=== PATIENT | male | born 1930 | race Caucasian/White ===

== ENCOUNTER 2016-10-21 10:03 | Emergency (ER) | payer OTHER, MEDICARE ==
[~2016-10-21] VITALS: Ht 177.8 cm; Wt 111.0 kg
[~2016-10-21 10:03] MED LIST: ACETAMINOPHEN1 EAC4 PO; ARTANE2 MG PO; ASPIR 8181 M1 PO; ASPIR-LOW81 MG PO; AUGMENTIN875 MG PO; Allergy PO; Artane PO; BENADRYL ALLERG25 MG PO; BENZONATATE100 MG PO; BUMETANIDE1 MG PO; BUMETANIDE2 MG PO; BUMEX2 MG PO; CLARITIN10 M3 PO; CLEOCIN300 MG PO; CRESTOR10 MG PO; DIGOXIN125 MCG PO; DOXYCYCLINE HY100 MG PO; ELIQUIS5 MG PO; FLOMAX0.4 MG; FUROSEMIDE40 MG PO; GABAPENTIN100 MG PO; GABAPENTIN300 MG PO; HYDROCODONE-AP1 EAC8 PO; K-DUR10 MEQ PO; K-DUR20 MEQ PO; KLOR-CON 1010 ME1 PO; KLOR-CON M2020 MEQ PO; LANTUS 10100 UNITS/ SC; LANTUS 3 M100 UNITS1 SC; LANTUS100 UNIT/1 SQ; LASIX40 MG PO; LEVOFLOXACIN500 MG PO; LISINOPRIL10 MG PO; LISINOPRIL40 MG PO; LOPRESSOR50 MG PO; LOSARTAN POTASS25 MG PO; Lopressor PO; MELOXICAM15 MG PO; METFORMIN HCL850 MG PO; METOPROLOL; METOPROLOL TART50 MG PO; MINOCYCLINE HCL50 MG PO; MIRALAX17 GM PO; MYSOLINE250 MG PO; NASA MIST SALIN75 ML NS; NORVASC2.5 MG PO; PERCOCET 5/31 TABLET PO; POTASSIUM CHLO20 ME1 PO; POTASSIUM-9999 MG PO; PRAMIPEXOLE DI0.5 MG PO; PRAVACHOL80 MG PO; PRAVASTATIN SOD20 MG PO; PRAVASTATIN SOD80 MG PO; PRIMIDONE250 MG PO; PROSCAR5 MG PO; REQUIP1 MG PO; RESTASIS 01 DROP/0.4 BOTH EYES; ST. JOSEPH ASPI81 MG PO; SULFASALAZINE500 MG PO; SYSTANE BALANCE10 ML BOTH EYES; TOPROL XL25 MG PO; TRIHEXYPHENIDYL2 MG PO; TYLENOL PM PO; TYLENOL WITH C1 EACH PO; XARELTO20 MG PO; ZESTRIL,PRINIVI20 MG PO; Zestril,Prinivil PO
[2016-10-21 10:35] LABS: POINT-OF-CARE METER ID UU13113778
[2016-10-21 10:49] LABS: EOSINOPHIL (%) 3.6 % (0-5); EOSINOPHIL COUNT 0.2 K/uL (0-0.3); HEMATOCRIT 40.7 % (38.0-50.0); IMMATURE GRANULOCYTE (%) 0.8 % (0.0-0.7); IMMATURE GRANULOCYTE COUNT 0.1 K/uL; INSTRUMENT ABS NEUTROPHIL CT 4.1 K/uL; LYMPHOCYTE COUNT 1.1 K/uL (1.0-2.8); MCH 31.3 PG (29.0-34.0); MCHC 33.2 G/DL (30.0-36.0); MCV 94.2 FL (86-99); MEAN PLAT.VOLUME 9.9 uM^3 (9.0-12.4); MONOCYTE (%) 9.9 % (3-12); MONOCYTE COUNT 0.6 K/uL (0-0.8); NEUTROPHIL (%) 66.6 % (45-76); NEUTROPHIL COUNT 4.1 K/uL (1.8-6.4); PLATELET COUNT 154 K/uL (156-360); RBC DIS.WIDTH-CV 13.2 % (11.8-14.6); RBC DIS.WIDTH-SD 45.2 % (39-53); RED BLOOD COUNT 4.32 M/uL (4.00-5.50); WHITE BLOOD COUNT 6.1 K/uL (4.1-10.2)
[2016-10-21 10:50] LABS: CARBON DIOXIDE (BICARBONATE) 32.2 MEQ/L (20-31)
[2016-10-21 11:01] LABS: CHLORIDE 102 mEq/L (99-109); POTASSIUM 4.6 mEq/L (3.7-5.4); SODIUM 137 mEq/L (136-147)
[2016-10-21 11:03] LABS: GLUCOSE 359 mg/dL (70-99)
[2016-10-21 11:04] LABS: ANION GAP 8 MEQ/L (2-14)
[2016-10-21 11:05] LABS: TOTAL BILIRUBIN 0.4 mg/dL (0.0-1.0)
[2016-10-21 11:07] LABS: ALKALINE PHOSPHATASE 78 IU/L (3-129); GFR ESTIMATE (CALCULATED) 51 mL/min/
[2016-10-21 11:08] LABS: UREA NITROGEN (BUN) 31 mg/dL (9-23)
[2016-10-21 11:09] LABS: DIRECT BILIRUBIN 0.2 mg/dL (0.0-0.3)
[2016-10-21 11:10] LABS: LIPASE 42 U/L (1.0-51.0); TROP-I INTERPRETATION NEGATIVE; TROPONIN-I 0.04 ng/mL (0.0-0.30)
[2016-10-21 11:54] LABS: ADD MIUA? NO; BILIRUBIN NEGATIVE; BLOOD NEGATIVE; COLOR YELLOW ((YELLOW)); GLUCOSE (STRIP) >=500; KETONES NEGATIVE; LEUKOCYTES NEGATIVE; NITRITE NEGATIVE; PROTEIN (STRIP) 30; SPECIFIC GRAVITY 1.017 (1.000-1.030); UCUL ADDED? NO; UROBILINOGEN 0.2 MG/DL (0.2-1.0)
[2016-10-21 12:03] LABS: ADD MEDTOX COMMENT Y; AMPHETAMINE NEGATIVE (500 ng/mL); BARBITURATES PRESUMPTIVE POSITIVE (200 ng/mL); BENZODIAZEPINES NEGATIVE (150 ng/mL); COCAINE NEGATIVE (150 ng/mL); INTERNAL CONTROLS VALID? YES; METHADONE NEGATIVE (200 ng/mL); METHAMPHETAMINE NEGATIVE (500 ng/mL); OPIATES (MORPHINE) NEGATIVE (100 ng/mL); OXYCODONE NEGATIVE (100 ng/mL); PHENCYCLIDINE NEGATIVE (25 ng/mL); PROPOXYPHENE NEGATIVE (300 ng/mL); THC CANNABINOIDS NEGATIVE (50 ng/mL); TRICYCLIC ANTIDEPRESSANTS NEGATIVE (300 ng/mL)
[2016-10-21 13:09] LABS: POINT-OF-CARE METER ID UU13113702
[2016-10-21 14:45] VITALS: BP 153/79
== END 2016-10-21 14:47 | disposition home or self-care (01) ==
LOC: EME 10:03
PROVIDERS: Emergency Medicine
DX: E11.65 Type 2 diabetes mellitus with hyperglycemia (principal); J45.909 Unspecified asthma, uncomplicated; G89.29 Other chronic pain; I11.0 Hypertensive heart disease with heart failure; I50.9 Heart failure, unspecified; I25.2 Old myocardial infarction; E11.40 Type 2 diabetes mellitus with diabetic neuropathy, unspecified; Z87.891 Personal history of nicotine dependence; R06.02 Shortness of breath
CPT/HCPCS: 71020; 80048; 80076; 81003; 82803; 82948; 83690; 83880; 84484; 84999; 85025; 93005; 99281; 99285; J7030

== ENCOUNTER 2017-04-01 04:25 | Inpatient (IN) | payer OTHER, MEDICARE ==
[~2017-04-01] VITALS: Ht 172.7 cm; Wt 109.9 kg
[2017-04-01 04:57] LABS: HEMATOCRIT 42.5 % (38.0-50.0); MCH 30.6 PG (29.0-34.0); MCHC 32.7 G/DL (30.0-36.0); MCV 93.6 FL (86-99); MEAN PLAT.VOLUME 10.7 uM^3 (9.0-12.4); PLATELET COUNT 136 K/uL (156-360); RBC DIS.WIDTH-CV 13.5 % (11.8-14.6); RBC DIS.WIDTH-SD 46.4 % (39-53); RED BLOOD COUNT 4.54 M/uL (4.00-5.50); WHITE BLOOD COUNT 8.2 K/uL (4.1-10.2)
[2017-04-01 05:07] LABS: CHLORIDE 107 mEq/L (99-109); POTASSIUM 4.5 mEq/L (3.7-5.4); SODIUM 139 mEq/L (136-147)
[2017-04-01 05:08] LABS: GLUCOSE 189 mg/dL (70-99)
[2017-04-01 05:10] LABS: ANION GAP 9 MEQ/L (2-14)
[2017-04-01 05:12] LABS: GFR ESTIMATE (CALCULATED) 51 mL/min/
[2017-04-01 05:13] LABS: UREA NITROGEN (BUN) 37 mg/dL (9-23)
[2017-04-01 05:17] LABS: INTER. NORMALIZED RATIO 1.2; PROTHROMBIN TIME 12.7 SEC (10.2-12.9)
[2017-04-01 05:19] LABS: TROP-I INTERPRETATION NEGATIVE; TROPONIN-I 0.05 ng/mL (0.0-0.30)
[2017-04-01 05:20] LABS: PTT 33.6 SEC (25-37)
[2017-04-01 06:28] LABS: DIGOXIN 0.4 ng/mL (0.8-2.0)
[2017-04-01] MEDS ORDERED: NEURONTIN300 MG PO (07:36)
[2017-04-01] MEDS ORDERED: RESTASIS MULTI5.5 ML BOTH EYES (07:37)
[2017-04-01] MEDS ORDERED: JANUVIA25 MG PO (07:38)
[2017-04-01] MEDS ORDERED: HUMALOG KW200 UNIT/1 SC ×2 (07:38)
[2017-04-01 08:07] LABS: POINT-OF-CARE METER ID UU13113702
[2017-04-01 10:53] VITALS: BP 144/69
[2017-04-01 11:58] LABS: POINT-OF-CARE METER ID UU14117124
[2017-04-01 16:12] VITALS: BP 137/65
[2017-04-01 17:39] LABS: POINT-OF-CARE METER ID UU14117124
[2017-04-01 20:02] VITALS: BP 125/65
[2017-04-01 23:49] VITALS: BP 134/72
[2017-04-02 04:26] VITALS: BP 116/65
[2017-04-02 06:24] LABS: POINT-OF-CARE METER ID UU14117124
[2017-04-02 06:58] LABS: ANION GAP 6 MEQ/L (2-14); CHLORIDE 103 MEQ/L (99-109); GFR ESTIMATE (CALCULATED) 56 mL/min/; GLUCOSE 132 mg/dL (70-99); POTASSIUM 4.8 MEQ/L (3.7-5.4); SAMPLE HEMOLYSIS CHECK 0; SAMPLE ICTERIC CHECK 0; SAMPLE LIPEMIA CHECK 0; SODIUM 138 MEQ/L (136-147); UREA NITROGEN (BUN) 34 mg/dL (9-23)
[2017-04-02 08:00] VITALS: BP 148/70
[2017-04-02 11:53] LABS: POINT-OF-CARE METER ID UU14208753
[2017-04-02 11:55] VITALS: BP 122/68
[2017-04-02 16:06] VITALS: BP 133/60
[2017-04-02 16:28] LABS: POINT-OF-CARE METER ID UU14208753
[2017-04-02 20:26] VITALS: BP 130/64
[2017-04-02 22:56] LABS: POINT-OF-CARE METER ID UU14208753
[2017-04-02 23:52] VITALS: BP 114/61
[2017-04-03 04:00] VITALS: BP 121/60
[2017-04-03 06:56] LABS: POINT-OF-CARE METER ID UU14117124
[2017-04-03 07:15] LABS: ANION GAP 6 MEQ/L (2-14); CHLORIDE 101 MEQ/L (99-109); GFR ESTIMATE (CALCULATED) 56 mL/min/; GLUCOSE 117 mg/dL (70-99); POTASSIUM 4.7 MEQ/L (3.7-5.4); SAMPLE HEMOLYSIS CHECK 0; SAMPLE ICTERIC CHECK 0; SAMPLE LIPEMIA CHECK 0; SODIUM 139 MEQ/L (136-147); UREA NITROGEN (BUN) 37 mg/dL (9-23)
[2017-04-03 08:09] VITALS: BP 132/66
[2017-04-03 11:23] LABS: POINT-OF-CARE METER ID UU14117124
[2017-04-03 11:51] VITALS: BP 136/63
[2017-04-03 16:08] VITALS: BP 136/63
[2017-04-03 16:51] LABS: POINT-OF-CARE METER ID UU14117124
[2017-04-03 20:26] VITALS: BP 131/63
[2017-04-03 21:32] LABS: POINT-OF-CARE METER ID UU14117124
[2017-04-04 00:15] VITALS: BP 127/61
[2017-04-04 04:37] VITALS: BP 119/58
[2017-04-04 08:23] VITALS: BP 132/63
[2017-04-04 11:36] LABS: POINT-OF-CARE METER ID UU14188577
[2017-04-04 11:59] VITALS: BP 116/66
== END 2017-04-04 15:40 | DRG 291 ==
LOC: EME 04:25 → 3EAST 06:05 → EDOF 06:05 → ENRESERV 06:25 → 3EAST 08:39
PROVIDERS: Internal Medicine
DX: I13.0 Hypertensive heart and chronic kidney disease with heart failure and stage 1 through stage 4 chronic kidney disease, or unspecified chronic kidney disease (principal); I50.23 Acute on chronic systolic (congestive) heart failure; I48.1 Persistent atrial fibrillation; J44.1 Chronic obstructive pulmonary disease with (acute) exacerbation; I48.2 Chronic atrial fibrillation; R09.02 Hypoxemia; N18.3 Chronic kidney disease, stage 3 (moderate); I42.0 Dilated cardiomyopathy; I35.1 Nonrheumatic aortic (valve) insufficiency; I34.0 Nonrheumatic mitral (valve) insufficiency; I87.2 Venous insufficiency (chronic) (peripheral); E78.5 Hyperlipidemia, unspecified; E11.40 Type 2 diabetes mellitus with diabetic neuropathy, unspecified; E11.22 Type 2 diabetes mellitus with diabetic chronic kidney disease; I44.7 Left bundle-branch block, unspecified; E66.9 Obesity, unspecified; Z68.36 Body mass index [BMI] 36.0-36.9, adult; Z95.0 Presence of cardiac pacemaker; Z87.891 Personal history of nicotine dependence; Z87.442 Personal history of urinary calculi; Z79.4 Long term (current) use of insulin; Z79.01 Long term (current) use of anticoagulants; Z91.048 Other nonmedicinal substance allergy status
CPT/HCPCS: 71020; 80048; 80162; 82948; 83880; 84484; 85027; 85610; 85730; 93005; 93306; 94640; 94640 76; 94760; 94799; 99202; 99281; 99285; J1644; J1815; J1940; J2405

== ENCOUNTER 2017-06-21 13:47 | Emergency (ER) | payer OTHER, MEDICARE ==
[~2017-06-21] VITALS: Ht 172.7 cm; Wt 107.8 kg
[~2017-06-21 13:47] MED LIST changes: +HUMALOG KW200 UNIT/1 SC; +JANUVIA25 MG PO; +NEURONTIN300 MG PO; +RESTASIS MULTI5.5 ML BOTH EYES
[2017-06-21 15:29] LABS: APPEARANCE CLEAR ((CLEAR)); BILIRUBIN NEGATIVE; BLOOD NEGATIVE; COLOR YELLOW ((YELLOW)); GLUCOSE (STRIP) NEGATIVE; KETONES NEGATIVE; LEUKOCYTES MODERATE; NITRITE NEGATIVE; PROTEIN (STRIP) 30; SPECIFIC GRAVITY 1.018 (1.000-1.030)
[2017-06-21 15:36] LABS: BACTERIA NONE SEEN /HPF; EPITHELIAL CELLS RARE /HPF; MUCUS NONE SEEN /LPF; RED BLOOD CELLS 0-5 /HPF (0-5); UCUL ADDED? NO; WHITE BLOOD CELLS 0-5 /HPF (0-5)
[2017-06-21 15:37] LABS: HEMATOCRIT 43.8 % (38.0-50.0); HEMOGLOBIN 14.4 G/DL (12.5-16.6); MCH 30.9 PG (29.0-34.0); MCHC 32.9 G/DL (30.0-36.0); PLATELET COUNT 131 K/uL (156-360); RBC DIS.WIDTH-CV 13.8 % (11.8-14.6); RBC DIS.WIDTH-SD 46.7 % (39-53); RED BLOOD COUNT 4.66 M/uL (4.00-5.50); WHITE BLOOD COUNT 8.1 K/uL (4.1-10.2)
[2017-06-21 15:46] LABS: CHLORIDE 104 mEq/L (99-109); MAGNESIUM 2.5 mg/dL (1.3-2.7); POTASSIUM 4.7 mEq/L (3.7-5.4); SODIUM 138 mEq/L (136-147)
[2017-06-21 15:48] LABS: GLUCOSE 104 mg/dL (70-99)
[2017-06-21 15:50] LABS: INTER. NORMALIZED RATIO 1.2
[2017-06-21 15:51] LABS: CREATININE 1.4 mg/dL (0.6-1.3); GFR ESTIMATE (CALCULATED) 51 mL/min/ (58.99-99999)
[2017-06-21 15:52] LABS: UREA NITROGEN (BUN) 41 mg/dL (9-23)
[2017-06-21 15:53] LABS: PTT 36.2 SEC (25-37)
[2017-06-21 16:00] LABS: TROP-I INTERPRETATION NEGATIVE; TROPONIN-I 0.07 ng/mL (0.0-0.30)
[2017-06-21 16:01] LABS: DIGOXIN 0.6 ng/mL (0.8-2.0)
[2017-06-21] MEDS ORDERED: COLACE100 MG PO (18:01)
[2017-06-21 18:43] VITALS: BP 192/90
[2017-06-22] MEDS ORDERED: SENOKOT S,PE1 TABLET PO (21:14)
== END 2017-06-21 18:56 | disposition home or self-care (01) ==
LOC: EME 13:47
PROVIDERS: Emergency Medicine
DX: K59.00 Constipation, unspecified (principal); R10.32 Left lower quadrant pain; I11.0 Hypertensive heart disease with heart failure; I50.9 Heart failure, unspecified; E11.40 Type 2 diabetes mellitus with diabetic neuropathy, unspecified; J45.909 Unspecified asthma, uncomplicated; I25.2 Old myocardial infarction; Z79.4 Long term (current) use of insulin; Z87.891 Personal history of nicotine dependence; Z87.442 Personal history of urinary calculi; Z85.9 Personal history of malignant neoplasm, unspecified; Z88.8 Allergy status to other drugs, medicaments and biological substances
CPT/HCPCS: 74177; 80048; 80162; 81003; 82948; 83605; 83735; 84484; 85027; 85610; 85730; 93005; 99281; 99285; J7040

== ENCOUNTER 2017-06-22 18:13 | Emergency (ER) | payer OTHER, MEDICARE ==
[~2017-06-22] VITALS: Ht 172.7 cm; Wt 108.5 kg
[~2017-06-22 18:13] MED LIST changes: +COLACE100 MG PO
[2017-06-22 19:08] LABS: APPEARANCE CLEAR ((CLEAR)); BILIRUBIN NEGATIVE; BLOOD NEGATIVE; COLOR YELLOW ((YELLOW)); GLUCOSE (STRIP) NEGATIVE; KETONES NEGATIVE; LEUKOCYTES TRACE; NITRITE NEGATIVE; PROTEIN (STRIP) 100; SPECIFIC GRAVITY 1.027 (1.000-1.030)
[2017-06-22 19:12] LABS: BACTERIA NONE SEEN /HPF; EPITHELIAL CELLS RARE /HPF; MUCUS NONE SEEN /LPF; RED BLOOD CELLS 0-5 /HPF (0-5); UCUL ADDED? NO; WHITE BLOOD CELLS 0-5 /HPF (0-5)
[2017-06-22 19:13] LABS: HEMATOCRIT 44.2 % (38.0-50.0); HEMOGLOBIN 14.6 G/DL (12.5-16.6); MCH 31.1 PG (29.0-34.0); PLATELET COUNT 138 K/uL (156-360); RBC DIS.WIDTH-CV 13.9 % (11.8-14.6); WHITE BLOOD COUNT 8.3 K/uL (4.1-10.2)
[2017-06-22 19:21] LABS: ALBUMIN 3.9 g/dL (3.2-4.8)
[2017-06-22 19:22] LABS: CHLORIDE 106 mEq/L (99-109); POTASSIUM 5.1 mEq/L (3.7-5.4); SODIUM 142 mEq/L (136-147)
[2017-06-22 19:24] LABS: GLUCOSE 128 mg/dL (70-99); TOTAL PROTEIN 7.2 g/dL (6.4-8.3)
[2017-06-22 19:26] LABS: TOTAL BILIRUBIN 0.4 mg/dL (0.0-1.0)
[2017-06-22 19:27] LABS: ALKALINE PHOSPHATASE 96 IU/L (3-129)
[2017-06-22 19:28] LABS: CREATININE 1.5 mg/dL (0.6-1.3); GFR ESTIMATE (CALCULATED) 47 mL/min/ (58.99-99999)
[2017-06-22 19:29] LABS: AST (GOT) 22 IU/L (2-34); UREA NITROGEN (BUN) 45 mg/dL (9-23)
[2017-06-22 19:31] LABS: ALT (GPT) 20 IU/L (3-49)
[2017-06-22] MEDS ORDERED: SENOKOT S,PE1 TABLET PO (21:14)
[2017-06-22 21:43] VITALS: BP 156/89
== END 2017-06-22 21:43 | disposition home or self-care (01) ==
LOC: EME 18:13
PROVIDERS: Emergency Medicine
DX: R10.32 Left lower quadrant pain (principal); K59.00 Constipation, unspecified; R21 Rash and other nonspecific skin eruption; G25.81 Restless legs syndrome; B35.8 Other dermatophytoses; I10 Essential (primary) hypertension; E11.9 Type 2 diabetes mellitus without complications; Z79.4 Long term (current) use of insulin; Z87.442 Personal history of urinary calculi; Z79.01 Long term (current) use of anticoagulants; Z87.891 Personal history of nicotine dependence
CPT/HCPCS: 80053; 81003; 83605; 85027; 99281; 99285; J2765; J7040

== ENCOUNTER 2017-09-22 03:17 | Inpatient (IN) | payer OTHER, MEDICARE ==
[~2017-09-22] VITALS: Ht 172.7 cm; Wt 103.5 kg
[~2017-09-22 03:17] MED LIST changes: +SENOKOT S,PE1 TABLET PO
[2017-09-22 03:40] LABS: HEMATOCRIT 43.3 % (38.0-50.0); HEMOGLOBIN 14.3 G/DL (12.5-16.6); MCH 31.4 PG (29.0-34.0); PLATELET COUNT 152 K/uL (156-360); RBC DIS.WIDTH-CV 13.4 % (11.8-14.6); RBC DIS.WIDTH-SD 46.9 % (39-53); RED BLOOD COUNT 4.56 M/uL (4.00-5.50)
[2017-09-22 03:59] LABS: CHLORIDE 103 mEq/L (99-109); SODIUM 140 mEq/L (136-147)
[2017-09-22 04:01] LABS: GLUCOSE 274 mg/dL (70-99)
[2017-09-22 04:05] LABS: CREATININE 1.4 mg/dL (0.6-1.3); GFR ESTIMATE (CALCULATED) 51 mL/min/ (58.99-99999); UREA NITROGEN (BUN) 38 mg/dL (9-23)
[2017-09-22 04:36] LABS: MAGNESIUM 2.2 mg/dL (1.3-2.7)
[2017-09-22 04:47] LABS: TROP-I INTERPRETATION NEGATIVE; TROPONIN-I 0.06 ng/mL (0.0-0.30)
[2017-09-22 05:32] LABS: APPEARANCE CLEAR ((CLEAR)); BILIRUBIN NEGATIVE; BLOOD NEGATIVE; COLOR YELLOW ((YELLOW)); GLUCOSE (STRIP) >=500; KETONES NEGATIVE; LEUKOCYTES NEGATIVE; NITRITE NEGATIVE; PROTEIN (STRIP) 30; SPECIFIC GRAVITY 1.017 (1.000-1.030); UROBILINOGEN 0.2 MG/DL (0.2-1.0)
[2017-09-22 06:01] LABS: DIGOXIN 0.4 ng/mL (0.8-2.0)
[2017-09-22 07:26] VITALS: BP 139/68
[2017-09-22] MEDS ORDERED: CARVEDILOL3.125 MG PO (09:53)
[2017-09-22] MEDS ORDERED: ERYTHROMYC1 APPLICAT BOTH EYES (09:55)
[2017-09-22] MEDS ORDERED: METOLAZONE2.5 MG PO (09:56)
[2017-09-22 11:19] VITALS: BP 162/72
[2017-09-22 15:55] VITALS: BP 133/68
[2017-09-22 23:24] VITALS: BP 138/65
[2017-09-23] VITALS (7 sets, daily range): BP systolic 123–145; BP diastolic 63–72
[2017-09-23 06:22] LABS: CHLORIDE 103 MEQ/L (99-109); CREATININE 1.4 MG/DL (0.6-1.3); GFR ESTIMATE (CALCULATED) 51 mL/min/ (58.99-99999); GLUCOSE 162 mg/dL (70-99); POTASSIUM 4.3 MEQ/L (3.7-5.4); SODIUM 140 MEQ/L (136-147); UREA NITROGEN (BUN) 37 mg/dL (9-23)
[2017-09-24 03:33] VITALS: BP 112/62
[2017-09-24 07:13] LABS: CHLORIDE 100 MEQ/L (99-109); CREATININE 1.4 MG/DL (0.6-1.3); GFR ESTIMATE (CALCULATED) 51 mL/min/ (58.99-99999); SODIUM 140 MEQ/L (136-147); UREA NITROGEN (BUN) 42 mg/dL (9-23)
[2017-09-24 07:19] VITALS: BP 134/63
[2017-09-24 07:20] LABS: GLUCOSE 75 mg/dL (70-99)
[2017-09-24 11:21] VITALS: BP 127/60
[2017-09-24] MEDS ORDERED: ARTANE2 MG PO ×2 (12:09→12:10)
[2017-09-24] MEDS ORDERED: SENOKOT S,PE1 TABLET PO (15:52)
[2017-09-24] MEDS ORDERED: COLACE100 MG PO (15:52)
[2017-09-24] MEDS ORDERED: NEURONTIN300 MG PO (15:52)
[2017-09-24 16:40] VITALS: BP 110/67
== END 2017-09-24 17:17 | disposition home or self-care (01) | DRG 291 ==
LOC: EME 03:17 → 5EAST 05:41 → EDOF 05:41 → ENRESERV 05:48 → 5EAST 07:03
PROVIDERS: Internal Medicine; Physician Assistant
DX: I13.0 Hypertensive heart and chronic kidney disease with heart failure and stage 1 through stage 4 chronic kidney disease, or unspecified chronic kidney disease (principal); I50.23 Acute on chronic systolic (congestive) heart failure; N18.3 Chronic kidney disease, stage 3 (moderate); E11.22 Type 2 diabetes mellitus with diabetic chronic kidney disease; I48.2 Chronic atrial fibrillation; I08.0 Rheumatic disorders of both mitral and aortic valves; E11.40 Type 2 diabetes mellitus with diabetic neuropathy, unspecified; E66.9 Obesity, unspecified; Z68.35 Body mass index [BMI] 35.0-35.9, adult; G25.0 Essential tremor; E78.5 Hyperlipidemia, unspecified; J45.909 Unspecified asthma, uncomplicated; I25.2 Old myocardial infarction; M19.90 Unspecified osteoarthritis, unspecified site; I44.7 Left bundle-branch block, unspecified; Z95.0 Presence of cardiac pacemaker; Z96.89 Presence of other specified functional implants; Z79.4 Long term (current) use of insulin; Z87.891 Personal history of nicotine dependence; Z87.442 Personal history of urinary calculi
CPT/HCPCS: 71046; 80048; 80162; 81003; 82948; 83735; 83880; 84484; 85027; 93005; 94640; 99202; 99281; 99285; J1940

== ENCOUNTER 2018-01-02 14:47 | Inpatient (IN) | payer OTHER, MEDICARE ==
[~2018-01-02] VITALS: Ht 172.7 cm; Wt 102.8 kg
[~2018-01-02 14:47] MED LIST changes: +CARVEDILOL3.125 MG PO; +ERYTHROMYC1 APPLICAT BOTH EYES; +JANUVIA100 MG PO; -JANUVIA25 MG PO; +METOLAZONE5 MG PO
[2018-01-02 15:43] LABS: HEMATOCRIT 42.1 % (38.0-50.0); HEMOGLOBIN 14.1 G/DL (12.5-16.6); MCH 31.4 PG (29.0-34.0); MCHC 33.5 G/DL (30.0-36.0); MCV 93.8 FL (86-99); PLATELET COUNT 151 K/uL (156-360); RBC DIS.WIDTH-CV 13.6 % (11.8-14.6); RBC DIS.WIDTH-SD 46.4 % (39-53); RED BLOOD COUNT 4.49 M/uL (4.00-5.50); WHITE BLOOD COUNT 7.9 K/uL (4.1-10.2)
[2018-01-02 15:52] LABS: CHLORIDE 106 mEq/L (99-109); POTASSIUM 5.2 mEq/L (3.7-5.4); SODIUM 141 mEq/L (136-147)
[2018-01-02 15:56] LABS: GLUCOSE 226 mg/dL (70-99)
[2018-01-02 15:57] LABS: CREATININE 1.6 mg/dL (0.6-1.3); GFR ESTIMATE (CALCULATED) 44 mL/min/ (58.99-99999)
[2018-01-02 15:58] LABS: UREA NITROGEN (BUN) 47 mg/dL (9-23)
[2018-01-02 16:05] LABS: TROP-I INTERPRETATION NEGATIVE; TROPONIN-I 0.06 ng/mL (0.0-0.30)
[2018-01-02] MEDS ORDERED: PROAIR RESPICL90 MCG IH (18:15)
[2018-01-02] MEDS ORDERED: CLINDAMYCIN PHO60 M1 TP (18:15)
[2018-01-02] MEDS ORDERED: OTC ALLERGY MED PO (18:16)
[2018-01-02 21:59] VITALS: BP 134/77
[2018-01-02 23:25] LABS: TROP-I INTERPRETATION NEGATIVE; TROPONIN-I 0.06 ng/mL (0.0-0.30)
[2018-01-03 03:56] VITALS: BP 127/63
[2018-01-03 05:40] LABS: TROP-I INTERPRETATION NEGATIVE; TROPONIN-I 0.07 ng/mL (0.0-0.30)
[2018-01-03 05:44] LABS: ALBUMIN 3.7 G/DL (3.2-4.8); ALKALINE PHOSPHATASE 82 IU/L (3-129); ALT (GPT) 12 IU/L (3-49); AST (GOT) 18 IU/L (2-34); CHLORIDE 104 MEQ/L (99-109); CREATININE 1.4 MG/DL (0.6-1.3); GFR ESTIMATE (CALCULATED) 51 mL/min/ (58.99-99999); GLUCOSE 215 mg/dL (70-99); POTASSIUM 4.8 MEQ/L (3.7-5.4); SODIUM 139 MEQ/L (136-147); TOTAL BILIRUBIN 0.7 MG/DL (0.0-1.0); TOTAL PROTEIN 6.8 G/DL (6.4-8.3); UREA NITROGEN (BUN) 46 mg/dL (9-23)
[2018-01-03 08:13] VITALS: BP 138/60
[2018-01-03 12:14] VITALS: BP 137/62
[2018-01-03 14:57] VITALS: BP 130/70
[2018-01-03 19:30] VITALS: BP 130/64
[2018-01-04] VITALS: BP 128/62
[2018-01-04 04:02] VITALS: BP 130/63
[2018-01-04 06:06] LABS: CHLORIDE 99 MEQ/L (99-109); CREATININE 1.6 MG/DL (0.6-1.3); GFR ESTIMATE (CALCULATED) 44 mL/min/ (58.99-99999); GLUCOSE 146 mg/dL (70-99); POTASSIUM 4.6 MEQ/L (3.7-5.4); SODIUM 137 MEQ/L (136-147); UREA NITROGEN (BUN) 49 mg/dL (9-23)
[2018-01-04 07:48] VITALS: BP 129/58
[2018-01-04] MEDS ORDERED: METOLAZONE5 MG PO (07:54)
[2018-01-04] MEDS ORDERED: BUMETANIDE2 MG PO (07:54)
[2018-01-04] MEDS ORDERED: ELIQUIS5 MG PO (07:56)
[2018-01-04] MEDS ORDERED: DIGOXIN125 MCG PO (07:56)
[2018-01-04] MEDS ORDERED: PRAVASTATIN SOD80 MG PO (07:56)
== END 2018-01-04 11:34 | disposition home or self-care (01) | DRG 291 ==
LOC: EME 14:47 → EDOF 19:50 → 4SOUTH 19:50 → ENRESERV 19:59 → 4SOUTH 21:41
PROVIDERS: Hospitalist; Physician Assistant
DX: I13.0 Hypertensive heart and chronic kidney disease with heart failure and stage 1 through stage 4 chronic kidney disease, or unspecified chronic kidney disease (principal); I50.23 Acute on chronic systolic (congestive) heart failure; Z91.14 Patient's other noncompliance with medication regimen; E11.22 Type 2 diabetes mellitus with diabetic chronic kidney disease; N18.9 Chronic kidney disease, unspecified; E11.40 Type 2 diabetes mellitus with diabetic neuropathy, unspecified; I35.1 Nonrheumatic aortic (valve) insufficiency; I42.9 Cardiomyopathy, unspecified; I48.2 Chronic atrial fibrillation; I44.7 Left bundle-branch block, unspecified; I25.10 Atherosclerotic heart disease of native coronary artery without angina pectoris; J45.909 Unspecified asthma, uncomplicated; R25.1 Tremor, unspecified; R53.1 Weakness; G89.29 Other chronic pain; E78.5 Hyperlipidemia, unspecified; G25.81 Restless legs syndrome; E66.9 Obesity, unspecified; Z68.35 Body mass index [BMI] 35.0-35.9, adult; M19.90 Unspecified osteoarthritis, unspecified site; Z79.01 Long term (current) use of anticoagulants; Z79.4 Long term (current) use of insulin; Z86.73 Personal history of transient ischemic attack (TIA), and cerebral infarction without residual deficits; Z87.891 Personal history of nicotine dependence
CPT/HCPCS: 36415; 71046; 80048; 80053; 81003; 82570; 82948; 83735; 83880; 84100; 84156; 84484; 84550; 85025; 85027; 93005; 94640; 94799; 99281; 99285; G0378; J1815; J1940